=== PATIENT | male | born 1930 | race Caucasian/White ===

== ENCOUNTER 2019-07-04 20:38 | Inpatient (IN) | payer OTHER, BC ==
[~2019-07-04] VITALS: Ht 177.8 cm; Wt 77.0 kg
--- NOTE | ~2019-07-04 | HC ---
[facility] [place] [address] CONSULTATION Name: JOSELINE POOL Room #: 209-P [facility] IN ..#: [id number] Admission: 07/04/19 Attend Phys: Federico Juarez MD Discharge: Date of : 32 Report #: [id number] THIS REPORT FOR: //name// CC: Federico Juarez DATE OF SERVICE: 07/06/2019 HISTORY OF PRESENT ILLNESS: The patient is an 89-year-old white male who lives in assisted living facility with a history of Parkinson's disease and had a fall, hitting his head on the urinal. He sustained a laceration with head trauma. Denied any specific loss of consciousness. Upon admission, he was noted to have severe hyponatremia measured at 120. He had complaints of pain in the left aspect of the forehead with a laceration that was repaired in the Emergency Department. He was diagnosed with urinary tract infection. He does have Parkinson's disease. His oxybutynin and Seroquel were held. He was given normal saline. He is noted to have a functional decline from his premorbid status and we are seeing him in rehabilitation medicine consultation. PAST MEDICAL HISTORY: Includes Parkinson's disease for which he has been on Requip history of hypertension, GERD, gout, diabetes mellitus type 2, congestive heart failure, hyperlipidemia, hyponatremia, he has a suprapubic catheter, sleep disorder, pacemaker, chronic kidney disease stage 3, and cholecystectomy. PAST SURGICAL HISTORY: As noted above. MEDICATIONS: Please see the full medication listing. ALLERGIES: PENICILLIN AND CODEINE. FAMILY HISTORY: Significant for arthritis and Parkinson's disease. SOCIAL HISTORY: Lives in [facility]. He had some assistance with bathing. There is a history of 3 recent falls. The patient utilized a walker premorbidly to get down to the dining room in his assisted living apartment. He does have an involved daughter. REVIEW OF SYSTEMS: No current complaints of chest pain, shortness of breath, or abdominal discomfort. PHYSICAL EXAMINATION: GENERAL: A pleasant 89-year-old white male, in no obvious distress. VITAL SIGNS: Temperature 98.5, pulse 55, respirations 18, blood pressure 129/67. NEUROLOGIC: He is alert. Some evidence of masked facies. EOMs otherwise appeared full. There is a slight resting tremor. He has some mild cogwheeling, elbows and wrists. Strength is probably a grade 3+ to 4-/5. DTRs are trace to [facility] [address] [place] [address] CONSULTATION Name: JOSELINE POOL Room #: 209-P [facility] IN [facility].#: [id number] Admission: 07/04/19 Attend Phys: Federico Juarez MD Discharge: Date of : 32 Report #: [id number] 1. He does have a laceration near the left eyebrow with some ecchymosis. Sit to stand is min assist. Gait is min assist 30 feet with a front-wheeled walker. EXTREMITIES: Lower extremities, no focal calf swelling, functional range of motion with strength grade 4- to 3+/5. ASSESSMENT: This is an 89-year-old white male with the following problem list: 1. Parkinson's disease with some cogwheeling or bradykinesia. 2. Gait instability. 3. Recent falls. 4. Significant hyponatremia down to 120. 5. Fall with head trauma and laceration, left eyebrow. 6. Diabetes mellitus type 2. 7. Possible urinary tract infection. He is on antibiotics. PLAN: The patient is a candidate for an acute [address] [place] [address] inpatient rehabilitation stay. Discussion with the patient's daughter. He does have the medical necessity issues. We could have Internal Medicine closely involved regarding his electrolyte abnormalities and multiple medical comorbidities as noted above. He does have the tolerance for an acute inpatient rehabilitation stay and has the goal of returning back to his assisted living facility. We can plan on transfer to the acute [address] [place] [address] inpatient rehab pearce when medically cleared. Thank you for asking us to assist in this patient's care. By: [id number] Mook Ruth MD /JUAN
[2019-07-04 20:39] VITALS: BP 99/66
[2019-07-04] MEDS ORDERED: CARVEDILOL12.5 MG PO (21:14)
[2019-07-04] MEDS ORDERED: MIRALAX119 GM PO (21:15)
[2019-07-04] MEDS ORDERED: SLOW FE142 MG PO (21:15)
[2019-07-04] MEDS ORDERED: NIZORAL120 ML TOP (21:16)
[2019-07-04] MEDS ORDERED: TYLENOL325 MG PO (21:17)
[2019-07-04] MEDS ORDERED: IMODIUM A-D2 M1 PO (21:21)
[2019-07-04] MEDS ORDERED: MYLANTA GAS MIN42 MG PO (21:22)
[2019-07-04 21:24] LABS: HEMATOCRIT 36.7 % (42.0-52.0); HEMOGLOBIN 11.9 gm/dL (14.0-18.0); MCH 28.7 pg (26.0-34.0); MCHC 32.5 g/dL (28.0-37.0); MCV 88.3 fL (80.0-100.0); RBC 4.15 mil/uL (4.50-6.00); RDW 16.2 % (10.5-14.5); WBC 14.3 thou/uL (4.0-11.0)
[2019-07-04] MEDS ORDERED: MAGNESIUM250 M1 PO (21:24)
[2019-07-04 21:31] LABS: CALCIUM 9.6 mg/dL (8.5-10.1); CREATININE 1.4 mg/dL (0.7-1.3); POTASSIUM 4.8 mmol/L (3.5-5.1)
[2019-07-04] MEDS ORDERED: COMTAN200 MG PO (21:49)
[2019-07-04] MEDS ORDERED: OMEPRAZOLE 20 M20 M1 PO (21:52)
[2019-07-04] MEDS ORDERED: CENTRUM SILVER1 EACH PO (22:12)
[2019-07-04] MEDS ORDERED: VITAMIN B-121000 MC2 PO (22:13)
[2019-07-04] MEDS ORDERED: VITAMIN D310000 UNIT PO (22:13)
[2019-07-04] MEDS ORDERED: COLACE100 MG PO (22:13)
[2019-07-04] MEDS ORDERED: METFORMIN HCL500 M3 PO (22:15)
[2019-07-04] MEDS ORDERED: INDAPAMIDE1.25 MG PO (22:16)
[2019-07-04] MEDS ORDERED: CHILDREN'S ZYRT10 M1 PO (22:16)
[2019-07-04] MEDS ORDERED: RASAGILINE MESYL1 MG PO (22:18)
[2019-07-04] MEDS ORDERED: LIPITOR 20 MG T20 M1 PO (22:19)
[2019-07-04] MEDS ORDERED: ALLOPURINOL 10100 M3 PO (22:19)
[2019-07-04] MEDS ORDERED: FAMOTIDINE20 MG PO (22:19)
[2019-07-04] MEDS ORDERED: CRANBERRY 12,61 EACH PO (22:20)
[2019-07-04] MEDS ORDERED: PROBIOTIC1 EAC7 PO (22:20)
[2019-07-04] MEDS ORDERED: MELATONIN10 M3 PO (22:21)
[2019-07-04] MEDS ORDERED: REQUIP 1 MG TABL1 M1 PO (22:21)
[2019-07-04] MEDS ORDERED: POTASSIUM20 PO (22:22)
[2019-07-04] MEDS ORDERED: MAGIC MOUTHWASH SW&SWALLOW (22:22)
[2019-07-04] MEDS ORDERED: LASIX 40 MG TAB40 MG PO (22:23)
[2019-07-04] MEDS ORDERED: FLONASE 0.05%50 MCG NARES (22:24)
[2019-07-04] MEDS ORDERED: OXYBUTYNIN 5 MG5 M2 PO (22:26)
[2019-07-04] MEDS ORDERED: SPIRIVA18 MCG INH (22:26)
[2019-07-04] MEDS ORDERED: SEROQUEL 25 MG25 MG PO (22:27)
[2019-07-04] MEDS ORDERED: CARBIDOPA-LEVO1 EAC5 PO (22:31)
[2019-07-04] MEDS ORDERED: CARBIDOPA-LEVO1 EA10 PO (22:33)
[2019-07-04] MEDS ORDERED: VOLTAREN GEL 1100 G1 TOP (22:34)
[2019-07-04] MEDS ORDERED: NEURONTIN300 MG PO (22:36)
[2019-07-04] MEDS ORDERED: CEPACOL SORE T1 EAC7 PO (22:37)
[2019-07-04] MEDS ORDERED: MUCINEX D ER 61 EACH PO (22:37)
[2019-07-04] MEDS ORDERED: BIOFREEZE118 ML TOP (22:38)
[2019-07-04 22:58] VITALS: BP 140/83
--- NOTE | 2019-07-04 22:59 | NUR ---
HANDOFF SENT TO Sarah
[2019-07-04 23:46] VITALS: BP 122/68
--- NOTE | 2019-07-05 | NUR ---
A VERY DELIGHTFUL LITTLE 89 Y/O PT OF DR DO ADMITTED TO ICU FROM ER WITH CLOSED HEAD INJURY FROM A FALL AT [facility] AND HYPONATURMIA. AWAKE AND ALERT. LEFT EYE BROW AREA VERY BRUISED. LACERATION PRESENT WITH SUTURES. NS AT 125 CC/HR WILL CONT TO MONITOR.
[2019-07-05 00:13] VITALS: BP 140/70
--- NOTE | 2019-07-05 01:00 | NUR ---
PT IS STARTING TO HAVE CRAMPS AND TREMORS FROM PARKINSON. NEEDS HIS MEDICATION DR BRANDO HADDAD. DAUGHTER AT BEDSIDE. WILL CONT TO MONITOR
[2019-07-05] MEDS ORDERED: CARBIDOPA-LEVO1 EAC9 PO ×3 (01:53→12:12)
[2019-07-05 04:59] LABS: CREATININE 1.2 mg/dL (0.7-1.3); POTASSIUM 3.9 mmol/L (3.5-5.1)
[2019-07-05 05:49] VITALS: BP 101/58
--- NOTE | 2019-07-05 06:00 | NUR ---
NEURO INTACT. FOLLOWS ALLL COMMANDS AND [place]. REMAINS ON NS AT 125 CC/HR
--- NOTE | 2019-07-05 06:00 | NUR ---
PT IS SLEEPING AT PRESENT HAD PAST EVENING PARKINSONS MEDS AT 0230 1500 CC CLEAR ELMER URINE FROM SUPRAPUBIC CATH. REMAINS 100 % PACED NO FURTHER CRAMPING NOR TREMIORS./ PT IS A DNR. ON CAP AT NIGHT. WILL CONT TO MONITOR CLOSELY.
[2019-07-05 08:10] VITALS: BP 112/59
[2019-07-05 12:05] VITALS: BP 115/57
[2019-07-05] MEDS ORDERED: CRANBERRY PLUS1 EAC1 PO (12:18)
[2019-07-05] MEDS ORDERED: CENTRUM SILVER1 EACH PO (12:39)
[2019-07-05] MEDS ORDERED: BACTRIM DS TAB1 EAC1 PO (12:40)
[2019-07-05 14:07] LABS: URINE BILIRUBIN NEGATIVE (Negative); URINE BLOOD TRACE (Negative); URINE CLARITY CLEAR; URINE COLOR YELLOW; URINE GLUCOSE-RANDOM* NEGATIVE (Negative); URINE KETONES NEGATIVE (Negative); URINE LEUKOCYTES-REFLEX 3+ (Negative); URINE NITRITE-REFLEX POSITIVE (Negative); URINE PROTEIN (DIPSTICK) NEGATIVE (Negative); URINE SPECIFIC GRAVITY 1.015 (1.005-1.035); URINE UROBILINOGEN 0.2 E.U./dl (0.2-1.0)
[2019-07-05 14:15] LABS: URINE WBC-REFLEX >25 Many /HPF (0-5)
[2019-07-05 14:18] LABS: BACTERIA-REFLEX 1-9 Few /HPF (None Seen)
[2019-07-05 14:19] LABS: CASTS None Seen /LPF (None Seen); CRYSTALS None Seen /LPF (None Seen)
[2019-07-05 14:20] LABS: SQUAMOUS None Seen /LPF (0-3); URINE RBC 0-2 Rare /HPF (0-2)
[2019-07-05 15:55] VITALS: BP 112/54
[2019-07-05 20:18] VITALS: BP 136/56
[2019-07-06 04:13] VITALS: BP 152/89
--- NOTE | 2019-07-06 04:36 | NUR ---
ASSUMED CARE OF PT. AT 2100. PT. SLEPT WELL TRHOUGH MOST OF NIGHT. ONE INCIDENT OF CONFUSION AND TRYING TO GET UP AND OUT OF BED WITHOUT CALLING. NO OTHER EVENTS DURING SHIFT. ASSESSMENTS CHARTED. CONTINUE TO FOLLOW POC. WILL CONTINUE TO MONITOR.
[2019-07-06 04:59] LABS: ABSOLUTE NEUTROPHILS 5.1 thou/uL (1.4-8.2); BASOPHILS 0.9 % (0.0-2.0); EOSINOPHILS 3.9 % (0.0-3.0); HEMATOCRIT 36.3 % (42.0-52.0); HEMOGLOBIN 11.9 gm/dL (14.0-18.0); LYMPHOCYTES 21.7 % (24.0-44.0); MCH 28.8 pg (26.0-34.0); MCHC 32.7 g/dL (28.0-37.0); MCV 87.9 fL (80.0-100.0); PLATELET COUNT 276 thou/uL (150-400); POLYS 61.5 % (36.0-66.0); RBC 4.14 mil/uL (4.50-6.00); RDW 16.1 % (10.5-14.5); WBC 8.3 thou/uL (4.0-11.0)
[2019-07-06 05:16] LABS: ALBUMIN 3.6 g/dL (3.4-5.0); CREATININE 1.1 mg/dL (0.7-1.3); POTASSIUM 4.1 mmol/L (3.5-5.1); TOTAL BILIRUBIN 0.4 mg/dL (<0.1-1.0); TOTAL PROTEIN 7.8 g/dL (6.4-8.2)
[2019-07-06 07:25] VITALS: BP 134/80
--- NOTE | 2019-07-06 10:40 | NUR ---
Met with patient he resides at [facility]. He uses a walker for ambulation and on good days he is able to dress himself and using walker ambulate in hallway. Patient fell in bathroom at [facility] across from [place] room. patient does not recall coming to hospital. Therapy evaled and reports post acute care. Sp with kenneth Torres. She is agreeable to post acute care and interested in [facility] snf. They have never needed to utilize in the past. Therapy questions if candidate for 5N. He has hx of Parkinsons. Message to Dr long. Left medicare skilled list in room for patient.
[2019-07-06 11:15] VITALS: BP 121/67
--- NOTE | 2019-07-06 14:19 | NUR ---
patient accepted to 5N acute rehab once stable updated phys.
[2019-07-06 15:50] VITALS: BP 115/59
--- NOTE | 2019-07-06 16:02 | NUR ---
FAXED REFERRAL TO [facility] SPOKE WITH TRINITY IN ADM SHE RECEIVED REFERRAL AND DP JUST FOUND OUT THAT [facility] CAN ACCEPT SO TRINITY SAID SHE WILL HOLD ONTO REFERRAL IN CASE PT WOULD NEED A SKILLED STAY AFTER ACUTE REHAB.
[2019-07-06 20:12] VITALS: BP 125/74
[2019-07-07 04:58] LABS: ABSOLUTE NEUTROPHILS 6.2 thou/uL (1.4-8.2); BASOPHILS 0.6 % (0.0-2.0); EOSINOPHILS 5.5 % (0.0-3.0); HEMATOCRIT 34.7 % (42.0-52.0); HEMOGLOBIN 11.4 gm/dL (14.0-18.0); LYMPHOCYTES 18.4 % (24.0-44.0); MCHC 32.9 g/dL (28.0-37.0); MONOCYTES 11.4 % (1.0-8.0); PLATELET COUNT 272 thou/uL (150-400); POLYS 64.1 % (36.0-66.0); RBC 3.94 mil/uL (4.50-6.00); RDW 15.9 % (10.5-14.5); WBC 9.6 thou/uL (4.0-11.0)
[2019-07-07 05:04] VITALS: BP 148/77
[2019-07-07 05:07] LABS: CALCIUM 9.1 mg/dL (8.5-10.1); CREATININE 1.1 mg/dL (0.7-1.3); POTASSIUM 3.7 mmol/L (3.5-5.1)
--- NOTE | 2019-07-07 06:46 | NUR ---
PATIENTS CARES WERE ASSUMED AT SHIFT CHANGE. PATIENT WAS ASSESSED AND MEDS WERE PASSED. WAS TOLD ON REPORT THAT THIS MAN WAS UP WITH ONE ASSIST. GETTING HIM TO THE BATHROOM WAS A CHALLANGE. NOTES STATED HE IS MAX ASSIST AND WILL REINFORCE THAT IN REPORT. HE DOES TAKE PILLS WITH WATER AND NO TROUBLE TO SWOLLOWING.HOURLY ROUNDS WERE DONE. THE BED IS IN A LOW AND LOCKED POSITION. THE BED ALARM IS ON
[2019-07-07 08:37] VITALS: BP 142/71
--- NOTE | 2019-07-07 10:20 | NUR ---
patient to dc to 5N today they have bed avail and accepting. Notified dtr Melissa who is in agreement with plan. Notfied [facility] admission.
[2019-07-07 11:42] VITALS: BP 132/63
--- NOTE | 2019-07-07 12:09 | NUR ---
AAOX4. TREMORS D/T PARKINSONS NOTED. ASSISTED WITH BREAKFAST TRAY. ASSISTED TO BSC FOR BM. DISCHARGING TO INPT REHAB. DR. ELIAS CALLED FOR CHANGE IN ANTIBIOTIC PER PHARMACY D/T CULTURE I.D.
[2019-07-07 15:58] VITALS: BP 128/71
--- NOTE | 2019-07-08 15:38 | H ---
[facility] [place] [address] HISTORY AND PHYSICAL Name: JOSELINE POOL Room #: 209-P [facility] IN ..#: [id number] Admission: 07/04/19 Attend Phys: Philip Juarez MD Discharge: 07/07/19 Date of : 32 Report #: [id number] THIS REPORT FOR: //name// CC: PHILIP Juarez DATE OF SERVICE: 07/05/2019 CHIEF COMPLAINT: Hyponatremia. HISTORY OF PRESENT ILLNESS: The patient is an 89-year-old white male, a patient of Dr. Philip Juarez, a resident of [facility], who fell on the evening of this admission, struck his head on the urinal and sustained a laceration there that was repaired in the Emergency Department. He has a history of hyponatremia chronically; but usually not so drastic, it is 120 that was measured in the Emergency Room at [facility]. He is admitted to telemetry. Slow sodium correction was instituted with IV normal saline at 125 mL per hour. He is feeling better this morning. His forehead does hurt. PAST MEDICAL HISTORY: Hypertension, gastroesophageal reflux disease, gout, type 2 diabetes, congestive heart failure, hyperlipidemia, iron deficiency anemia, Parkinson's disease, seborrheic dermatitis, hyponatremia, frequent UTIs, suprapubic catheter after instrumentation for bladder stones, sleep disorder, pacemaker, chronic kidney disease stage 3, and cholecystectomy. MEDICATIONS: Indapamide 1.25 mg p.o. daily, Requip 3 mg p.o. t.i.d., magnesium hydroxide, milk of magnesia 30 mL p.o. q. 3 days p.r.n. constipation, Voltaren 1% gel q.i.d. to affected painful area, ketaconazole shampoo daily to red rashy skin, Neurontin 300 mg 1 p.o. q.i.d., famotidine 20 mg p.o. daily, B12 1000 mcg p.o. daily, melatonin 3 mg p.o. at bedtime, omeprazole 40 mg p.o. daily, Colace 100 mg p.o. daily, cholecalciferol vitamin D3 2000 International Units p.o. daily, Sinemet 25/100 two p.o. q.i.d., allopurinol 300 mg p.o. q.p.m. with dinner, gabapentin, atorvastatin or Lipitor 20 mg p.o. at bedtime, probiotic 1 cap p.o. daily, magnesium G 500 mg p.o. daily, multivitamin 1 p.o. daily, Comtan 200 mg p.o. t.i.d., Azilect 1 mg p.o. daily, metformin 500 mg p.o. b.i.d. with meals, Zyrtec 10 mg 1 p.o. daily p.r.n. allergies, quetiapine 25 mg p.o. at bedtime, cranberry extract p.o. t.i.d., Indocin 50 mg p.o. daily p.r.n. gouty arthritis, Spiriva Respimat 2 puffs inhalation daily, fluticasone Flonase allergy relief 1 spray nasally daily p.r.n. allergies, Omnicef 600 mg p.o. daily, colchicine 0.6 mg p.o. daily p.r.n. gout pain in the foot, Aristocort 0.1 mg application topically b.i.d. p.r.n. itch, Coreg 6.25 mg p.o. b.i.d. with meals. ALLERGIES: PENICILLIN, CODEINE. OCCUPATION: He is retired, ambulatory with a walker. [address] [address] HISTORY AND PHYSICAL Name: JOSELINE POOL Room #: 209-P [facility] IN [facility]#: [id number] Admission: 07/04/19 Attend Phys: Philip Juarez MD Discharge: 07/07/19 Date of : 32 Report #: [id number] ADDITIONAL SURGICAL HISTORY: Prostate surgery, transurethral resection of the prostate, suprapubic catheter instrumentation for bladder stones, urethral stricture instrumentation. FAMILY HISTORY: Mother had arthritis and Parkinson's disease. Father had arthritis and diabetes. SOCIAL HISTORY: He lives alone. He uses a walker, a [facility] resident, nonsmoker. He has a daughter who lives in [place]. REVIEW OF SYSTEMS: GENERAL: He has had debility, recent fall, laceration of the forehead repaired in the Emergency Room. Denies chest pain, shortness of breath, abdominal pain, has suprapubic catheter. Remainder of system review is negative. OBJECTIVE: VITAL SIGNS: Temperature is 36.9, pulse 81, respirations 20, blood pressure 101/58, pulse ox on room air is 98% on room air. GENERAL: He is alert, appears fatigued. HEENT: Pupils are equal, round, reactive to light and accommodation. Extraocular muscles are intact. He has a repaired laceration of the left aspect of his forehead. Pharynx unremarkable. NECK: Supple. COR: S1, S2. CHEST: Clear. ABDOMEN: Soft, nontender. A suprapubic catheter with clear urine draining to a drainage bag. EXTREMITIES: Nonedematous. NEUROLOGIC: Intact without focal deficit. LABORATORY DATA: White count 14.3, hemoglobin 11.9, hematocrit 36.7, platelets 268,000. Serum chemistry: Sodium 120, potassium 4.8, chloride 86, CO2 of 27, BUN 19, creatinine 1.4. IMAGING DATA: CT scan, L-spine done from the Emergency Department, no visualized fracture or listhesis, mild degenerative disk disease of lumbar spine with moderate degenerative disk disease at L3-L4 and L4-L5, lfinvtib-qq-wgpomk facet arthropathy of lower lumbar spine. Nonobstructing superior left renal calculus, [address] scan for the T-spine done from the Emergency Department, no fracture or listhesis. Diffuse mild degenerative disk disease of the thoracic spine. Mild peripheral ground glass opacities within the lung daniel, could be due to atelectasis or mild interstitial lung disease, coronary artery calcifications. CT scan of the C-spine done from the Emergency Department, no acute fracture or static subluxation of the cervical spine, mild degenerative disk disease of cervical spine with tumtkubb-gu-ccmrvo degenerative disk disease [address] [address] HISTORY AND PHYSICAL Name: CORINEJOSELINE Tristan Room #: 209-P [facility] IN M.R.#: [id number] Admission: 07/04/19 Attend Phys: Philip Juarez MD Discharge: 07/07/19 Date of : 32 Report #: [id number] at C5-C6 and C6-C7. Also, mild right and yarlcxpz-vj-gtpfyy left multilevel facet arthropathy. CT scan of the facial bones including mandible done from the Emergency Department, no facial fracture detected. CT scan of the head done from the Emergency Department, noncontrast, no acute intracranial process. Extensive supratentorial disease suggestive of small vessel ischemic white matter changes. ASSESSMENT: Hyponatremia, fall, laceration of the left aspect of the forehead repaired in the Emergency Department, urinary tract infection, Parkinson's disease, and type 2 diabetes. PLAN: Admit to telemetry. Monitor cardiac rhythm, slow sodium correction, check UA and culture if indicated. Restart most medications. Reviewing for possible association with hyponatremia, holding oxybutynin and Seroquel for now, holding Biofreeze cranberry not available. Mucinex, Cepacol Magic mouthwash, Accu-Cheks, and recheck morning laboratory. <ELECTRONICALLY SIGNED> By: Tae Sultana MD, VINCENZO, FACEP 07/08/19 [id number] Tae Sultana MD, VINCENZO, FACEP /nt
== END 2019-07-07 16:29 | DRG 914 ==
LOC: ER 20:38 → EROBS 22:15 → 2N 22:15 → ENTRNSPT 07-07 16:11 → 2N 07-07 16:29
PROVIDERS: Family Medicine; Physician Assistant; ADMIT Internal Medicine
PROC: 08QPXZZ Repair Left Upper Eyelid, External Approach (ICD-10-PCS; 2019-07-04)
PROC: 5A09357 Assistance with Respiratory Ventilation, Less than 24 Consecutive Hours, Continuous Positive Airway Pressure (ICD-10-PCS; principal; 2019-07-05)
PROC: 5A09357 Assistance with Respiratory Ventilation, Less than 24 Consecutive Hours, Continuous Positive Airway Pressure (ICD-10-PCS; 2019-07-06)
PROC: 5A09357 Assistance with Respiratory Ventilation, Less than 24 Consecutive Hours, Continuous Positive Airway Pressure (ICD-10-PCS; 2019-07-07)
DX: S09.90XA Unspecified injury of head, initial encounter (principal); N17.9 Acute kidney failure, unspecified; E87.1 Hypo-osmolality and hyponatremia; N39.0 Urinary tract infection, site not specified; I13.0 Hypertensive heart and chronic kidney disease with heart failure and stage 1 through stage 4 chronic kidney disease, or unspecified chronic kidney disease; S00.12XA Contusion of left eyelid and periocular area, initial encounter; G20 Parkinson's disease; E78.00 Pure hypercholesterolemia, unspecified; M10.9 Gout, unspecified; K21.9 Gastro-esophageal reflux disease without esophagitis; E11.42 Type 2 diabetes mellitus with diabetic polyneuropathy; I50.9 Heart failure, unspecified; K59.09 Other constipation; W18.39XA Other fall on same level, initial encounter; E78.5 Hyperlipidemia, unspecified; N18.3 Chronic kidney disease, stage 3 (moderate); E11.22 Type 2 diabetes mellitus with diabetic chronic kidney disease; Z66 Do not resuscitate; R29.6 Repeated falls; Z43.6 Encounter for attention to other artificial openings of urinary tract; Z90.49 Acquired absence of other specified parts of digestive tract; Z79.2 Long term (current) use of antibiotics; Z79.84 Long term (current) use of oral hypoglycemic drugs; Z79.899 Other long term (current) drug therapy; Z88.5 Allergy status to narcotic agent; Z88.0 Allergy status to penicillin; Z88.8 Allergy status to other drugs, medicaments and biological substances; Y93.89 Activity, other specified; Y92.89 Other specified places as the place of occurrence of the external cause; Y99.8 Other external cause status; Z82.61 Family history of arthritis; Z81.8 Family history of other mental and behavioral disorders; Z95.0 Presence of cardiac pacemaker; Z87.440 Personal history of urinary (tract) infections; Z83.3 Family history of diabetes mellitus
CPT/HCPCS: 10081

== ENCOUNTER 2019-07-07 10:57 | Inpatient (IN) | payer OTHER, BC ==
[~2019-07-07] VITALS: Ht 175.3 cm; Wt 72.6 kg
--- NOTE | ~2019-07-07 | HC ---
[facility] [place] [address] CONSULTATION Name: JOSELINE POOL Room #: 513-P ADM IN M.R.#: [id number] Admission: 07/07/19 Attend Phys: Mook Ruth MD Discharge: Date of : 32 Report #: [id number] THIS REPORT FOR: //name// CC: Federico Juarez Mook Ruth DATE OF SERVICE: 07/11/2019 NEUROBEHAVIORAL STATUS EXAM ATTENDING PHYSICIAN: Mook Ruth MD CLEAN OUT DRILLER: Inderjit Webb, PhD CLINICAL PRESENTATION: The patient is an 89-year-old male admitted to the Rehabilitation Unit at [facility] for comprehensive inpatient rehabilitation program to improve functional mobility, activities of daily living and self-care and mental status. The patient carries a diagnosis of Parkinson's disease. His assessment on admission to the rehab unit is Parkinson's disease with cogwheeling and bradykinesia, gait instability, recent falls, significant hyponatremia, fall with head trauma laceration over the left eyebrow, diabetes mellitus type 2 and possible urinary tract infection. The patient was diagnosed with UTI and treated with antibiotics. A complete description of his medical condition and history can be found in his medical record. Neuropsychological consultation was requested to provide assistance in the assessment of cognitive and emotional status and to provide recommendations and services. Prior to this most recent admission, the patient was living at [facility] in assisted living. He reports having 2 children. His about 20 years ago. The patient indicated having obtained a doctor of ministry degree. 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 He does not report a history of treatment for anxiety or depression. There is no description of excessive alcohol use. TECHNIQUES UTILIZED: Clinical interview, review of medical records, staff consultation and behavioral observation, mini mental status exam 2 standard version and clock drawing. EXAMINATION FINDINGS: The patient was alert and cooperative with the assessment. He was unable to describe the events surrounding his admission. The patient presented with initial amnestic episode, which may be a symptom of having sustained a concussion. He does not report auditory or visual hallucinations. There is no evidence of thought disorder. He does not present with aphasia. His thoughts are logical and goal oriented. The patient does present with a reduced speed of expression. Speech was slow and effortful. [address] [address] CONSULTATION Name: JOSELINE POOL Room #: 513-P [facility] IN M.R.#: [id number] Admission: 07/07/19 Attend Phys: Mook Ruth MD Discharge: Date of : 32 Report #: [id number] Bradykinesia is noted with thought processing and verbal expression. He does not report difficulty with sleep or energy level. He does recognize difficulty with memory and word finding. He describes his children are very supportive. The patient's mood appears depressed, although he denies subjective depression or anxiety. Performance on the MMSE 2 brief version is 10 of 16, which is a T score of 13. His function is extremely low. He was 3/3 for initial registration, 3/5 for orientation to time, 4/[address] and 0/3 for immediate recall of 3 items after a brief time delay and distraction. Performance on the MMSE 2 standard version is extremely low with a raw score of 19/30, T score of 16. He was 1/5 for serial sevens, 2/2 for naming, 1/1 for repetition, 3/3 for auditory comprehension. He could read and follow single command and write a sentence. The patient was unable to copy a simple geometric design. Deficits in clock drawing are also noted. The patient is presenting with moderate deficits in cognitive functioning. Memory, concentration and attention and executive functioning are impaired. Help was described as necessary for medication and financial operations consultant. DIAGNOSTIC IMPRESSION: Major neurocognitive disorder (dementia), unspecified, with Parkinson related features and also possibly a concussive event, without behavior disorder, extent to be determined, likely in the mild to moderate range. RECOMMENDATIONS: The patient will continue to require assistance in the management of medication, finances and nutrition. Increased time for problem solving will be necessary. Although the patient denies subjective depression, his mood appears despondent. However, depressive presentation may be a result of parkinsonian features. Consider a treatment program for depression that includes the use of antidepressant medication. Verbal praise and complements about participation in therapies along with increased time for verbal expression and planning will also be of benefit. Thank you very much for allowing me to provide the consultation on this patient. By: [id number] Inderjit Webb, PhD /nt
[~2019-07-07 10:57] MED LIST: ALLOPURINOL 10100 M3 PO; BACTRIM DS TAB1 EAC1 PO; BIOFREEZE118 ML TOP; CARBIDOPA-LEVO1 EA10 PO; CARBIDOPA-LEVO1 EAC5 PO; CARBIDOPA-LEVO1 EAC9 PO; CARVEDILOL12.5 MG PO; CENTRUM SILVER1 EACH PO; CEPACOL SORE T1 EAC7 PO; CHILDREN'S ZYRT10 M1 PO; COLACE100 MG PO; COMTAN200 MG PO; CRANBERRY 12,61 EACH PO; CRANBERRY PLUS1 EAC1 PO; FAMOTIDINE20 MG PO; FLONASE 0.05%50 MCG NARES; IMODIUM A-D2 M1 PO; INDAPAMIDE1.25 MG PO; LASIX 40 MG TAB40 MG PO; LIPITOR 20 MG T20 M1 PO; MAGIC MOUTHWASH SW&SWALLOW; MAGNESIUM250 M1 PO; MELATONIN10 M3 PO; METFORMIN HCL500 M3 PO; MIRALAX119 GM PO; MUCINEX D ER 61 EACH PO; MYLANTA GAS MIN42 MG PO; NEURONTIN300 MG PO; NIZORAL120 ML TOP; OMEPRAZOLE 20 M20 M1 PO; OXYBUTYNIN 5 MG5 M2 PO; POTASSIUM20 PO; PROBIOTIC1 EAC7 PO; RASAGILINE MESYL1 MG PO; REQUIP 1 MG TABL1 M1 PO; SEROQUEL 25 MG25 MG PO; SLOW FE142 MG PO; SPIRIVA18 MCG INH; TYLENOL325 MG PO; VITAMIN B-121000 MC2 PO; VITAMIN D310000 UNIT PO; VOLTAREN GEL 1100 G1 TOP
[2019-07-07 16:35] VITALS: BP 139/77
[2019-07-07 16:45] VITALS: BP 139/77
--- NOTE | 2019-07-07 19:00 | NUR ---
PT ADMITS TO 5N FOR PARKINSON AND GAIT INSTABILITY AT 1645. PT ALERT AND ORIENTED X4. SLOW IN RESPONSE BUT APPROPRIATE. HE LIVES AT [facility]. FALL ON THE GROUND. HAS 3 SUTURES ON UPPER EYE AND BRUISES AROUND IT. HAS ABRASION ON MID BACK WITH SCABBED OVER. OTHERWISE SKIN IS INTACT. VSS ON RA. REASSESSMENT PER CHART. LAST BM THIS AM REPORTS LIQUID BM. HAS SUPRAPUBIC CATH INTACT WITH ELMER URINE/ CHRONIC BLADDER STONES. PT HAS OLD PACEMAKER ON LEFT CHEST. BRADYCARDIA D/T ON PARKINSON MEDICATIONS. PT USES CPAP AT NIGHT PER CCU NURSE. HAS IV ON RIGHT FOREARM SL. STARTED ON 1ST DOSE IV CEFEPINE ABT PRIOR ADMIT TO 5N FOR UTI PER CCU NURSE AND CONTINUE TO BE ON 5N PER DR. ELIAS. PT DENIES PAIN, SOB. N/V. DISCUSSED ABOUT REHAB PROGRAM WITH PT AND HIS DAUGHTER. PT READ FALL CONTRACT AND SIGNED CONSENTS. WENT OVER MEDICATIONS WITH PT AND HIS DAUGHTER AND FAXED ADMISSION MEDS TO PHARMACY. OFFERED SUPPORTIVE CARE. PT ATE 50% DINNER. PT IS ON CONTACT PRECAUTION FOR MRSA ON NARES. FALL PRECAUTION IN PLACE. CALL LIGHT WITHIN REACH. GAVE REPORT TO NIGHT NURSE TO CONTINUE TO MONITOR AND NOTIFIED DOCTORS FOR CONSULTS.
[2019-07-07 19:50] VITALS: BP 147/96
--- NOTE | 2019-07-08 01:24 | NUR ---
PT ALERT AND ORIENTED X 4. TRANSFERS TO BSC WITH MAX ASSIST X 1-2. SUPRAPUBIC CATH INTACT WITH CLEAR DARK YELLOW URINE. CPAP ON DURING THE NIGHT. PT DENIES PAIN OR DISCOMFORT. BED ALARM ON FOR SAFETY. PT APPEARS TO BE SLEEPING ON HOURLY ROUNDS.
[2019-07-08 06:39] LABS: HEMATOCRIT 35.3 % (42.0-52.0); HEMOGLOBIN 11.7 gm/dL (14.0-18.0); MCH 29.2 pg (26.0-34.0); MCHC 33.3 g/dL (28.0-37.0); MCV 87.7 fL (80.0-100.0); RBC 4.02 mil/uL (4.50-6.00); RDW 16.2 % (10.5-14.5)
[2019-07-08 06:49] LABS: CALCIUM 9.3 mg/dL (8.5-10.1); POTASSIUM 3.8 mmol/L (3.5-5.1)
[2019-07-08 10:12] VITALS: BP 115/71
--- NOTE | 2019-07-08 12:30 | NUR ---
chart review, pt up sitting at lunch table asked for his glucerna drink. harvesting contractor ordered it for him. pt is a & o x 3 with forgetfulness, quiet and able make his needs know. noted holt cath dependent drain bag. no holt prior to admit. he lives at [facility]. has walker and wheel chair. was able to dress self prior to admit, noted bruising on left side of face and eye, noted stitches in left upper eye lid. " yes fell at my place"/dayne. noted hearing aids. he is i[place]qu[place]. cm visited with daughter juveanl via phone call. education on team meeting and dcp. " oh great. we still waiting to see if getting the ustep walker for his parkinson. we filled out the paper work but have heard back when going to get it"/juvenal. will cont following as needed for dc needs.
[2019-07-08 19:24] VITALS: BP 103/65
--- NOTE | 2019-07-08 20:00 | NUR ---
Assumed cares at 0700. pt very sleepy this am, oriented to person, place and situation. denies pain. vitals remain stable. suprapubic catheter remains intact and patent, urine is dark yellow and clear. Right AC IV remains intact and patent. left eye incision remains dry and and sutures are intact. *1 bm mucousy noted. q1h visual checks. call light within reach. room near nurse's desk
--- NOTE | 2019-07-09 00:52 | NUR ---
PT ALERT AND ORIENTED X 4. SUPRAPUBIC CATH INTACT WITH CLEAR DARK YELLOW URINE. CPAP ON DURING THE NIGHT. PT C/O PAIN IN HIS HANDS. REFUSED PAIN MEDS. LEFT EYE BRUISED WITH SUTURES INTACT. BED ALARM ON FOR SAFETY. PT APPEARS TO BE SLEEPING ON HOURLY ROUNDS.
--- NOTE | 2019-07-09 07:26 | HC ---
Formerly [facility] [place] [address] CONSULTATION Name: JOSELINE POOL Tristan Room #: 513-P [facility] IN .R.#: [id number] Admission: 07/07/19 Attend Phys: Mook Ruth MD Discharge: Date of : 32 Report #: [id number] THIS REPORT FOR: //name// CC: Federico Ruth CONSULTATION REPORT FOR MEDICAL MANAGEMENT HISTORY OF PRESENT ILLNESS: The patient is an 89-year-old male who was admitted to the hospital initially with a fall and a head strike on the urinal with laceration that required repair in the Emergency Room. The patient was found in the Emergency Room to have profound hyponatremia with sodium of 120. The patient was admitted to telemetry initially and he was treated with IV fluid with improvement of his sodium. The patient was found to have a urinary tract infection and he was started on antibiotics, but unfortunately he was found to have Pseudomonas in the blood. For this reason, the antibiotics were changed. The patient was feeling much better. For this reason, he was transferred to inpatient rehabilitation at [address] [place] [address]. PAST MEDICAL HISTORY: Significant for hypertension, gastroesophageal reflux disease, gout, type 2 diabetes mellitus, congestive heart failure, hyperlipidemia, iron deficiency anemia, Parkinson's disease, seborrheic dermatitis, hyponatremia, frequent UTIs, suprapubic catheter after instrumentation for bladder stone, sleep disorder, pacemaker, chronic kidney disease stage 3, and cholecystectomy. MEDICATIONS: Reviewed. ALLERGIES: PENICILLIN AND CODEINE. FAMILY HISTORY: Significant for mother with arthritis and Parkinson's disease. Father has had history of arthritis and diabetes. SOCIAL HISTORY: The patient is living at [facility]. Denies any history of smoking or alcohol use. REVIEW OF SYSTEMS: Negative besides what was mentioned above. PHYSICAL EXAMINATION: VITAL SIGNS: The patient's temperature is 97.4, pulse 76, respirations 18, blood pressure 147/96. HEAD AND NECK: Unremarkable besides the bruising on the left eyebrow. Range of motion of the eyes is normal. There is no drainage from the nose or ears. The patient has wet mucous membrane. NECK: Supple. LUNGS: Clear to auscultation with good air entry bilaterally. CARDIAC: S1, S2 with soft systolic murmur in the aortic area. Formerly [facility] [address] [place] [address] CONSULTATION Name: JOSELINE POOL Room #: 513-P ADM IN .R.#: [id number] Admission: 07/07/19 Attend Phys: Mook Ruth MD Discharge: Date of : 32 Report #: [id number] ABDOMEN: Benign. Bowel sounds were positive. EXTREMITIES: Without any edema. NEUROLOGIC: The patient is able to move arms and legs without any problem. LABORATORY DATA: The patient's labs on arrival to the hospital showed a white count of 10, hemoglobin 11.7, hematocrit 35.3, platelet count 295. The patient's sodium is 127, potassium 3.8, chloride 92, bicarbonate 27, BUN 12, creatinine 1 and glucose 97. Urine culture is showing Pseudomonas more than 100,000 colonies that is sensitive to cefepime. ASSESSMENT AND PLAN: 1. Hyponatremia. 2. Status post fall with head trauma. 3. Parkinson's disease. 4. Urinary tract infection with Pseudomonas. The patient will be transferred to the inpatient rehab where he will start physical therapy and occupational therapy. We will continue to monitor the patient's electrolytes. The patient's antibiotics were switched to cefepime because of the Pseudomonas in the urine. The patient to continue his current medications for Parkinson's disease and to continue monitoring of his blood sugar readings. The patient is not showing any signs of fluid overload. We will continue to monitor the patient. <ELECTRONICALLY SIGNED> By: Federico Juarez MD 07/09/1924 9 9 Federico Juarez MD /nt
[2019-07-09 09:00] VITALS: BP 117/69
--- NOTE | 2019-07-09 11:25 | NUR ---
SPIRITUAL CARE CONSULT [id number] WAS COMPLETED BY THIS RABIES INSPECTOR.
--- NOTE | 2019-07-09 19:11 | NUR ---
PATIEN CONT ON REHAB FOR IMPROVE MOBILITY. HE DOES REQUIRE MODERATE ASSIST WITH TRANSFERS. HE IS CONT. OF BOWEL. CATH DRAINING CLEAR YELLOW URINE. WILL CONT WITH PLAN OF CARE.
[2019-07-10 05:20] LABS: HEMATOCRIT 33.5 % (42.0-52.0); HEMOGLOBIN 11.1 gm/dL (14.0-18.0); MCH 29.3 pg (26.0-34.0); MCHC 33.3 g/dL (28.0-37.0); MCV 87.9 fL (80.0-100.0); PLATELET COUNT 270 thou/uL (150-400); RBC 3.81 mil/uL (4.50-6.00); RDW 16.2 % (10.5-14.5); WBC 9.5 thou/uL (4.0-11.0)
[2019-07-10 05:48] LABS: CALCIUM 9.5 mg/dL (8.5-10.1); CREATININE 1.1 mg/dL (0.7-1.3); POTASSIUM 4.1 mmol/L (3.5-5.1)
[2019-07-10 06:51] LABS: ABSOLUTE NEUTROPHILS 6.1 thou/uL (1.4-8.2)
[2019-07-10 06:52] LABS: ANISOCYTOSIS 1+; BURR CELLS 1+; LARGE PLATELETS FEW; PLATELET ESTIMATE NORMAL; POIKILOCYTOSIS 1+; SCHISTOCYTES 1+
[2019-07-10 10:08] VITALS: BP 92/56
--- NOTE | 2019-07-10 18:16 | NUR ---
ASSUMED CARE AT 0700. PATIENT IS ALERT AND ORIENTED X4, FORGETFUL. PATIENT OSBORNE'S, YARN HANDLER ARE EQUAL. LUNGS ARE CLEAR. ABD IS SOFT WITH BSX4. PATIENT HAS SUPRAPUBIC CATHETER DRAINING ELMER COLORED URINE. PATIENT DIET CHANGED TO REGULAR DIET. PATIENT IS [place] AND HAS TREMORS R/T HIS PARKINSON DISEASE. PATIENT HAS S.L. IN HIS RIGHT F.A. PATIENT CONTINUES ON IV ABT. FALL AND SAFETY PROTOCOLS IN PLACE. DENIES ANY PAIN. CONTINUES TO PROGRESS SLOWLY TOWARDS D/C GOALS. WILL CONTINUE TO MONITER.
[2019-07-10 19:30] VITALS: BP 111/69
--- NOTE | 2019-07-11 01:46 | NUR ---
TO BED LAST EVENING WITH SMALL STEPS TO PIVOT FROM WC. SUPRAPUBIC CATHETER HAS SMALL AMOUNT LEAKAGE AT SITE, AREA COVERED WITH SLIT DRESSING. TOLERATING CPAP SINCE 2229 LAST EVENING. WHEN NOT ON CPAP, HE TAKES MEDS WITH NECTAR THICK LIQUID AND COUGHS/SPITS SMALL AMOUNT THIN LIQUID INTO ANOTHER CUP
[2019-07-11 06:49] LABS: CALCIUM 9.5 mg/dL (8.5-10.1); CREATININE 1.2 mg/dL (0.7-1.3); POTASSIUM 4.1 mmol/L (3.5-5.1)
[2019-07-11 07:30] VITALS: BP 120/68
--- NOTE | 2019-07-11 10:08 | NUR ---
ASSUMED CARE AT 0700. PATIENT IS ALERT AND ORIENTED X4, BUT BURNS [place]IUTE. PATIENT ALSO HAS PARKINSONS TREMORS. LUNGS ARE CLEAR AND DEMINISHED. ABD IS SOFT WITH BSX4. PATIENT HAS SUPRAPUBIC CATHETER THAT IS DRAINING ELMER COLORED URINE. UP IN W/C AND OUT TO THE DINING ROOM FOR MEALS. FALL AND SAFETY PROTOCOLS IN PLACE. DENIES ANY PAIN AT THIS TIME. CONTINUES TO PROGRESS SLOWLY TOWARDS D/C GOALS. WILL CONTINUE TO MONITER.
[2019-07-11 20:15] VITALS: BP 125/67
--- NOTE | 2019-07-12 02:42 | NUR ---
ON SIDE IN BED AFTER LONG TIME UP IN CHAIR LAST EVENING. 2 PERSON ASSIST UP TO WC TO TOILET FOR FLATUS ONLY, SUPRAPUBIC CATHETER PATENT. RFA SALINE LOCK FOR BID ANTIBIOTICS. PATIENT DRINKING NECTAR THICK LIQUIDS, APPRECIATES MEDS IN APPLESAUCE, SIPS IN CUP. TOLERATING BIPAP NOW WITH O2 SATS 96-97%
[2019-07-12 08:00] VITALS: BP 117/71
--- NOTE | 2019-07-12 10:36 | NUR ---
ASSUMED CARE OF PT AT 0715. PT IS A&OX4. IS SLOW TO SPEAK. DENIES PAIN AT THIS TIME. IS UP WITH MAX ASSIST OF 1-2 STAND PIVOT TO CHAIR. FALL PRECAUTIONS & HOURLY ROUNDING CONTINUED THIS SHIFT. LABS & VITALS REVIEWED. PT TAKES MEDS WHOLE WITH APPLESAUCE. HAS SUPRAPUBIC CATH IN PLACE. HAS PACEMAKER UPPER LEFT CHEST. 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 PT IS STABLE. IS IN ROOM, IN BED, WATCHING TV AT THIS TIME. CALL LIGHT WITHIN REACH. WILL CONTINUE TO MONITOR.
[2019-07-12 19:47] VITALS: BP 124/71
--- NOTE | 2019-07-12 22:46 | NUR ---
PT ASSESSMENT DONE AND VSS. MEDS GIVEN AND WELL TOLERATED. FALL PRECAUTIONS IN PLACE. SLEEPING WELL. HOURLY ROUNDING. CALL LIGHT IN REACH. WILL CONTINUE TO MONITOR.
[2019-07-13 07:26] LABS: ABSOLUTE NEUTROPHILS 6.9 thou/uL (1.4-8.2); BASOPHILS 0.7 % (0.0-2.0); EOSINOPHILS 5.6 % (0.0-3.0); HEMATOCRIT 35.8 % (42.0-52.0); HEMOGLOBIN 11.6 gm/dL (14.0-18.0); MCH 28.9 pg (26.0-34.0); MCHC 32.4 g/dL (28.0-37.0); MONOCYTES 11.3 % (1.0-8.0); PLATELET COUNT 286 thou/uL (150-400); POLYS 65.4 % (36.0-66.0); RBC 4.02 mil/uL (4.50-6.00); RDW 16.1 % (10.5-14.5); WBC 10.5 thou/uL (4.0-11.0)
[2019-07-13 07:30] LABS: CALCIUM 9.3 mg/dL (8.5-10.1); CREATININE 1.3 mg/dL (0.7-1.3); POTASSIUM 4.3 mmol/L (3.5-5.1)
[2019-07-13 08:03] VITALS: BP 116/74
--- NOTE | 2019-07-13 15:05 | NUR ---
ASSUMED CARE AT 0700. VSS ON RA. PATIENT IS ALERT AND ORIENTED X4, BUT [place]. ABLE TO VOICE HIS NEED. PATIENT ALSO HAS MILD PARKINSONS TREMORS CONTINUE TO BE ON ANTIPARKINSONS MEDS. REASSESSMENT PER CHART. LUNGS ARE CLEAR AND DIMINISHED. PT HAD VIDEO SWALLOWING TODAY. OK TO RESUME WITH THIN LIQUID. TAKE MED WHOLE ONE AT TIME WITH EITHER THIN WATER OR YOGURT. ABD IS SOFT WITH BSX4. REPORTS THAT BM HAS BEEN LOOSED. CONTINUE TO BE ON IV ABT FOR UTI. IV ON HELD MIRALAX AND COLACE SCHEDULE TODAY. PATIENT HAS SUPRAPUBIC CATHETER THAT IS DRAINING ELMER COLORED URINE CHANGED TO LEG BAG DURING DAY. UP IN W/C AND OUT TO THE DINING ROOM FOR MEALS. HAS MILD BACK PAIN. VOLTARENE GEL GIVEN. RESTING IN RECLINER WATCHING TV. FALL AND SAFETY PROTOCOLS IN PLACE. DENIES ANY PAIN AT THIS TIME. CONTINUES TO PROGRESS SLOWLY TOWARDS D/C GOALS. WILL CONTINUE TO MONITOR.
[2019-07-13 20:03] VITALS: BP 120/68
--- NOTE | 2019-07-13 22:49 | NUR ---
PT ASSESSMENT DONE AND VSS. MEDS GIVEN AND WELL TOLERATED. FALL PRECAUTIONS IN PLACE. TURNED Q 2 HRS. HOURLY ROUNDING. CALL LIGHT IN REACH. ASSISTED HIM WHILE HE PREPARING FOR BED. WILL CONTINUE TO MONITOR.
[2019-07-14 08:00] VITALS: BP 109/66
--- NOTE | 2019-07-14 10:48 | NUR ---
ASSUMED CARE AT 0700. PATIENT IS ALERT AND ORIENTED X4. PATIENT OSBORNE'S, OFFSET PLATE MAKER ARE EQUAL. LUNGS ARE CLEAR AND DEMINISHED. ABD IS SOFT WITH BSX4. PATIENT IS BACK ON THIN LIQUIDS. UP TO THE DINING ROOM PER W/C FOR MEALS. FALL AND SAFETY PROTOCOLS IN PLACE. DENIES ANY PAIN. S.L. IS PATIENT IN HIS RIGHT AC. PATIENT HAS SUPRAPUBIC CATHETER DRAINING DARK ELMER URINE. PATIENT CONTINUES TO PROGRESS SLOWLY TOWARDS D/C GOALS. WILL CONTINUE TO MONITER.
--- NOTE | 2019-07-14 13:26 | NUR ---
team meeting, recommendation: u step walker. [facility] has own u step that was donated to him yesterday. [facility] soft thin liquid. kgw liaison here to visit with pt. bahman 07/23/2019 radha greenberg (pt, ot, st ).
[2019-07-14 20:40] VITALS: BP 104/68
--- NOTE | 2019-07-15 04:33 | NUR ---
UP TO TOILET WITH MODERATE ASSIST FOR SMALL LIQUID STOOL. SUPRAPUBIC CATHETER PATENT FOR YELLOW URINE. APPRECIATES APPLESAUCE TO EASE SWALLOWING OF PILLS AND GLAD THAT HE NO LONGER NEEDS THICKENED LIQUIDS. COUGHING AND SPITTING CLEAR SPUTUM IN CUP. TOLERATED CPAP FROM 2229 UNTIL NOW WHEN HE HAD A SNEEZING SPELL
--- NOTE | 2019-07-15 08:18 | NUR ---
ASSUMED CARE AT 0700. PATIENT IS ALERT AND ORIENTED X4. PATIENT OSBORNE'S, UTILIZATION SPECIALIST ARE EQUAL. LUNGS ARE CLEAR AND DEMINISHED. PATIENT STILL COUGHING UP CLEAR SPUTUM. ABD IS SOFT WITH BSX4. PATIETN HAS LEG BAG TO HIS SUPRA-PUBIC CATHETER. UP WITH GAIT BELT AND WALKER TO W/C AND THEN TO THE BATHROOM. FALL AND SAFETY PROTOCOLS IN PLACE. DENIES PAIN AT THIS TIME. DR. PIERRE HERE TO SEE PATIENT. CONTINUES TO PROGRESS TOWARDS D/C GOALS. WILL CONTINUE TO MONITER.
[2019-07-15 09:00] VITALS: BP 111/66
[2019-07-15 20:12] VITALS: BP 121/62
--- NOTE | 2019-07-16 02:05 | NUR ---
PILLS GIVEN WITH APPLESAUCE LAST EVENING WHILE PATIENT STILL UP IN CHAIR. SUPRAPUBIC CATHETER. UP TO TOILET WITH ASSIST TWICE FOR BM, ONE SMALL, ONE LARGE. OCCASSIONAL COUGH TO CLEAR THROAT
[2019-07-16 07:06] LABS: CALCIUM 9.8 mg/dL (8.5-10.1); CREATININE 1.1 mg/dL (0.7-1.3); POTASSIUM 4.4 mmol/L (3.5-5.1)
[2019-07-16 08:05] VITALS: BP 117/78
--- NOTE | 2019-07-16 11:09 | NUR ---
ASSUMED CARE AT 0700. PATIENT IS ALERT AND ORIENTEDX4. PATIENT OSBORNE'S, MEDICAL CLINIC MANAGER ARE EQUAL. LUNGS ARE CLEAR AND DEMINISHED. PATIENT CONTINUES TO CLEAR SPUTUM THAT IS BEING COUGHED UP. PATIENT CONTINUES ON NASAL SPRAY AND CLARITIN. UP IN W/C AND OUT TO DINING ROOM FOR MEALS. ABD IS SOFT WITH BSX4. PATIENT HAS SUPRA-PUBIC CATHETER TO DD, DRAINING ELMER COLORED URINE. PATIENT HAS S.L. IN HIS RIGHT AC. FALL AND SAFETY PROTOCOLS INPLACE. C/O PAIN IN HIS RIGHT SHOULDER AND HIP . PRN GEL APPLIED TO BOTH AREAS. CONTINUES TO PROGRESS SLOWLY TOWARDS D/C GOALS.
--- NOTE | 2019-07-16 19:27 | NUR ---
1800 ORDER RECIEVED TO REEPLACE PATIENTS SUPRA-PUBIC CATETER WITH A 26 FR/5CC BALLOON. ABD SITE WAS PREPPED, OLD CATHETER BALLOON WAS DEFLATED AND REMOVED AND WAS REPLACED WITH 26FR/5CC BALLOON. PATIENT HAD IMMEDIATE 150 CC RETURN OF ELMER COLORED URINE. PATIENT NEW CATHETER SECURED IN PLACE BY A CATH SECURE. PATIENT TOLERATED THE PROCEDURE WELL. WILL CONTINUE TO MONITER.
[2019-07-16 20:12] VITALS: BP 123/76
[2019-07-17 09:00] VITALS: BP 107/71
--- NOTE | 2019-07-17 11:33 | NUR ---
Nutrition: Seen for follow up. Met w/ pt and daughter at bedside. Pt is eating great. At start of week per 07/13 note, pt eating 50-100% of meals. Has started eating more and more meals at 100% as of late. New meal average up to 71% per 07/12-07/15. So far today, he ate 100% of breakfast and 100% Glucerna supplement. Pt in agreement he is eating well. "I ate every crumb." Overall, down ~11# from 170-172# back on 07/05 to current wt of 159# on 07/16. Lowest wt at 157#, so up 2# in the last week. Receiving Glucerna BID with high success of drinking all. Spoke w/ RN too who voiced excellent intake, just a slow eater. Reviewed upcoming meals to ensure pt likes future meals. No changes needed and no other nutrition needs. Change to low nutrition risk.
--- NOTE | 2019-07-17 11:34 | NUR ---
ASSUMED CARE AT 0700. REPORTS SLEPT GOOD LAST NIGHT. NIGHT RN SAID PT HAD 3X BM YESTERDAY AND IT WAS LOOSE LAST NIGHT. HELD COLACE SCHEDULE THIS AM. PT IS CURRENTLY ON IV ABT FOR UTI. PATIENT HAS S.L. IN HIS RIGHT AC. PATIENT IS ALERT AND ORIENTEDX4.[place], ABLE TO MAKE HIS NEEDS KNOWN. REASSESSMENT PER CHART. DYE BOX OPERATOR ARE EQUAL. LUNGS ARE CLEAR AND DIMINISHED. C/O CONGESTED LAST NIGHT, BUT FEELS BETTER TODAY.PATIENT CONTINUES TO CLEAR SPUTUM THAT IS BEING COUGHED UP. CONTINUES ON NASAL SPRAY AND CLARITIN. UP IN W/C AND OUT TO DINING ROOM FOR MEALS. ABD IS SOFT WITH BSX4. PATIENT HAS SUPRA-PUBIC CATHETER TO DD, DRAINING ELMER COLORED URINE. OFFERED SUPPORTIVE CARE. MEDS GIVEN WITH YOGURT. PT UP TO DINNING ROOM FOR BREAKFAST. ATE 100%. PT IS IN GOOD CHIEFS SPIRIT. DRESSING IN RED FOR CHIEFS. FALL AND SAFETY PROTOCOLS INPLACE. C/O PAIN IN HIS RIGHT SHOULDER AND HIP LAST NIGHT PRN GEL APPLIED TO BOTH AREAS. DENIES PAIN NOW. CONTINUES TO PROGRESS SLOWLY TOWARDS D/C GOALS. DAUGHTER AT BEDSIDE. WILL CONTINUE TO MONITOR.
--- NOTE | 2019-07-17 12:36 | PLAN ---
[facility] [place] [address] REHAB UNIT PLAN OF CARE Name: JOSELINE POOL Room #: 513-P ADM IN M.R.#: [id number] Admission: 07/07/19 Attend Phys: Mook Ruth MD Discharge: Date of : 32 Report #: [id number] THIS REPORT FOR: //name// CC: Federico Ruth DATE OF SERVICE: 07/10/2019 PROGRESS NOTE AND OVERALL PLAN OF CARE SUBJECTIVE: The patient is seen back today in followup. He is in no distress. Last recorded temperature 97.6, pulse 70, respirations 18, blood pressure 117/69. The patient is alert. He is pleasant. Left eye periorbital ecchymosis is gradually decreasing. Chest sounds clear. Abdomen: Bowel sounds positive, nontender. Noted to have a liquid consistency stool yesterday. He has been working in therapies. Transfers are min assist, gait contact guard 150 feet. He moves slowly and needs cues. He has been mod assist for lower body dressing. ASSESSMENT: 1. Parkinson's disease with some cogwheeling and bradykinesia. 2. Gait instability. 3. Recent falls. 4. Significant hyponatremia, which was down to 120. Last sodium was up at 129. 5. Fall with head trauma laceration, left eyebrow. 6. Diabetes mellitus type 2. 7. Urinary tract infection with pseudomonas. PLAN: The overall plan of care is based on the preadmission screen, post-admission physician evaluation and information garnered from therapy assessments. 1. Estimated length of stay is probably at least 10 days to 2 weeks. 2. Medical prognosis is reasonably good. 3. Anticipated interventions includes the interdisciplinary acute inpatient rehabilitation program. 4. Anticipated functional outcomes would be for the patient to become modified independent with transfers, mobility and ADLs, so that he can return back to his prior living situation. 5. Discharge destination would be back to his apartment where he lives in the [facility]. 6. Expected therapy by discipline includes PT and OT 1-1/2 hours per day each five days a week throughout the duration of the acute inpatient rehabilitation stay. <ELECTRONICALLY SIGNED> By: Mook Ruth MD 07/17/19 1236 [id number] Mook Ruth MD /[facility]
--- NOTE | 2019-07-17 12:36 | H ---
[facility] [place] [address] HISTORY AND PHYSICAL Name: CORINEJOSELINE Tristan Room #: 513-P ADM IN M.R.#: [id number] Admission: 07/07/19 Attend Phys: Mook Ruth MD Discharge: Date of : 32 Report #: [id number] THIS REPORT FOR: //name// CC: Federico Ruth DATE OF SERVICE: 07/07/2019 HISTORY AND PHYSICAL/POST ADMISSION PHYSICIAN EVALUATION HISTORY OF PRESENT ILLNESS: The patient is an 89-year-old white male who lives in an assisted living facility with history of Parkinson's disease and had a fall, hitting his head on a urinal. He sustained a laceration with head trauma. Denies specific loss of consciousness. She was admitted to [facility] on 07/04/2019. Upon admission, he was noted to have severe hyponatremia with a level of 120. He had complaints of pain, left aspect of his forehead with laceration that was repaired in the Emergency Department. He was diagnosed with the urinary tract infection. He does have Parkinson's disease and also has a prior suprapubic catheter. His oxybutynin and Seroquel were held. He was given normal saline for his severe hyponatremia. He was noted to have significant functional deficits with a decrease from his premorbid functional level and has been admitted now for acute in-hospital inpatient rehabilitation. PAST MEDICAL HISTORY: Includes Parkinson's disease for which he has been on Requip. He has a history of hypertension, GERD, gout, diabetes mellitus type 2, congestive heart failure, hyperlipidemia, hyponatremia. He has the suprapubic catheter, sleep disorder, pacemaker, chronic kidney disease stage 3, cholecystectomy. PAST SURGICAL HISTORY: As noted above. MEDICATIONS: Please see the full medication listing. ALLERGIES: PENICILLIN AND CODEINE. FAMILY HISTORY: Significant for arthritis and Parkinson's disease. SOCIAL HISTORY: Lives at [facility]. He did have some assistance with bathing. There is a history of 3 recent falls. He utilized a walker premorbidly to get down of the dining room in his assisted living apartment. He does have an involved daughter. REVIEW OF SYSTEMS: No current complaints of chest pain, shortness of breath or abdominal discomfort. PHYSICAL EXAMINATION: [address] [address] HISTORY AND PHYSICAL Name: JOSELINE POOL Room #: 513-P [facility] IN .R.#: [id number] Admission: 07/07/19 Attend Phys: Mook Ruth MD Discharge: Date of : 32 Report #: [id number] GENERAL: This is an 89-year-old white male in no obvious distress. VITAL SIGNS: Last recorded temperature 97.4, pulse 79, respirations 18, blood pressure 147/96. NEUROLOGIC: The patient is alert. He does have some evidence of masked facies. EOMs otherwise appeared full, slight resting tremor. CHEST: Sounded clear to auscultation. CARDIOVASCULAR: Regular rate and rhythm. ABDOMEN: Bowel sounds positive, nontender. GENITOURINARY AND RECTAL: Deferred. EXTREMITIES: He has some mild cogwheeling elbows and wrists. Strength is grade 3+ to 4-/5. DTRs are trace to 1. He does have the laceration near the left eyebrow with some ecchymosis. Sit to stand, has been min assist. ASSESSMENT: This is an 89-year-old white male with the following problem list: 1. Parkinson's disease with some cogwheeling and bradykinesia. 2. Gait instability. 3. Recent falls. 4. Significant hyponatremia down to 120. 5. Fall with head trauma laceration, left eyebrow. 6. Diabetes mellitus type 2. 7. Possible urinary tract infection. He was diagnosed with a UTI per his cyber intelligence analyst and was treated with antibiotics. PLAN: From a postadmission physician evaluation perspective, there are no relevant changes since the preadmission screening. Please see the above review of prior and current medical and functional conditions and comorbidities. Please see the patient's previous and current functional status. As far as risk of complications, the patient has multiple medical comorbidities as noted above. Initial plan of care involves the interdisciplinary acute inpatient rehabilitation program with the goal of maximizing his functional independence, so he can hopefully return back to his prior living situation. Measurable functional goals would be for the patient to become independent with basic transfers and mobility issues at a walker level as well as achieving his prior ADL status so that he can return back to the home setting. Prognosis is reasonably good. Estimated length of stay is probably 10 days to 2 weeks. Potential barriers would include his multiple medical comorbidities and decreased functional status. The patient meets diagnostic criteria for an acute in-hospital inpatient rehabilitation stay. He meets the medical necessity criteria and we will have the provider contracting consultant physicians continue to follow, Dr. Juarez. He does have the [address] [address] HISTORY AND PHYSICAL Name: JOSELINE POOL Room #: 513-P ADM IN M.R.#: [id number] Admission: 07/07/19 Attend Phys: Mook Ruth MD Discharge: Date of : 32 Report #: [id number] tolerance for therapies and has an appropriate discharge goal back to the home setting. <ELECTRONICALLY SIGNED> By: Mook Ruth MD 07/17/19 1236 [id number] [id number] Mook Ruth MD /PMT
[2019-07-17 20:05] VITALS: BP 100/62
--- NOTE | 2019-07-18 04:37 | NUR ---
TOLERATING WATER, TAKING PILLS WITH APPLESAUCE PER HIS REQUEST. UP TO TOILET FOR ANOTHER BM WHICH HE C/O HAVING GAS AT THE SAME TIME, PLUS IT TOOK HIM A WHILE. ABLE TO WASH HIS HANDS WELL AND THEN BRUSH HIS TEETH INDEPENDENTLY. CPAP LAST EVENING AND IS STILL BEING TOLERATED WITH O2 SAT GREATER THAN 95%
[2019-07-18 11:37] VITALS: BP 116/63
--- NOTE | 2019-07-18 19:15 | NUR ---
ASSUMED CARE AT 0700. REPORTS SLEPT GOOD LAST NIGHT. PT CONTINUE TO BE ON IV ABT FOR UTI UNTIL 07/19/2019. PT HAD 4X LOOSE BM TODAY. HELD COLACE SCHEDULE THIS AM. PATIENT HAS S.L. IN HIS RIGHT AC. PATIENT IS ALERT AND ORIENTEDX4.[place], ABLE TO MAKE HIS NEEDS KNOWN. CONTINUE TO BE ON ISOLATION FOR MRSA ON NARES. REASSESSMENT PER CHART. LUNG SOUNDS CLEAR/DIMINISHED C/O CONGESTED PRN PSEUDOPHED GIVEN THIS EVENING. PATIENT CONTINUES TO CLEAR SPUTUM THAT IS BEING COUGHED UP. CONTINUES ON NASAL SPRAY AND CLARITIN. UP WITH WALKER AND OUT TO DINING ROOM FOR MEALS. ABD IS SOFT WITH BSX4. PATIENT HAS SUPRA-PUBIC CATHETER TO DD, DRAINING YELLOW COLORED URINE. OFFERED SUPPORTIVE CARE. MEDS GIVEN WITH YOGURT. PAIN IN HIS RIGHT SHOULDER AND HIP PRN GEL APPLIED TO BOTH AREAS. DENIES PAIN NOW. CONTINUES TO PROGRESS SLOWLY TOWARDS D/C GOALS. GAVE REPORT TO NIGHT NURSE TO CONTINUE TO MONITOR.
[2019-07-18 19:38] VITALS: BP 122/89
--- NOTE | 2019-07-19 03:02 | NUR ---
PT CARE ASSUME DWITH PT WATCHING TV IN BED.PT IS ALERT AND ORIENTED X4.PT UP TO RESTROOM WITH ASSISTED TO HAVE BM.PT IS ON RA DURING THE DAY AND CPAP AT NIGHT.PT TAKE MEDICATION WITH APPLE SAUCE OR YOGURT.FALL PRECAUTION IN PLACE AND PT CALL FO HELP APPROPRIETELY.WILL CONTINUE TO MONITOR PER POC
[2019-07-19 07:20] VITALS: BP 137/84
--- NOTE | 2019-07-19 11:15 | NUR ---
ASSUMED CARE AT 0700. PATIENT IS ALERT AND ORIENTED X4. PATIENT OSBORNE. DESK OFFICER ARE EQUAL. LUNGS ARE CLEAR AND DEMINISHED. PATIENT STILL HAS RESPIRATORY TX, AND IS COUGHING UP WHITE TO CLEAR MUCUS. S.L. D/C'D AND ABT D/C'D. MAGIC MOUTHWASW D/C'D. 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 UP TO THE W/C AND TO THE DINING ROOM FOR MEALS. PATIENT TAKES HIS MEDS IN APPLESAUCE. PATIENT HAS SUPRAPUBIC CATHETER DRAINING ELMER COLORED URINE. UP IN CHAIR IN HIS ROOM. FALL AND SAFETY PROTOCOLS IN PLACE. DENIES PAIN AT THIS TIME. CONTINUES TO PROGRESS TOWARDS D/C GOALS. WILL CONTINUE TO MONITER.
[2019-07-19 20:37] VITALS: BP 107/62
--- NOTE | 2019-07-19 22:45 | NUR ---
PT ASSESSMENT DONE AND VSS. MEDS GIVEN AND WELL TOLERATED. SLEEPING MED HELD TILL AFTER THE SUPERBOWL. PT UP IN RECLINER DURING THE GAME. ASSISTED TO BR WITH GAIT BELT AND WALKER. CONTINUES TO COUGH UP CLEAR MUCUS. FALL PRECAUTIONS IN PLACE. SLEEPING WELL AFTER THE GAME. CIPAP ON AT HS. HOURLY ROUNDING. CALL LIGHT IN PLACE. WILL CONTINUE TO MONITOR.
[2019-07-20 06:07] LABS: HEMATOCRIT 33.6 % (42.0-52.0); HEMOGLOBIN 10.9 gm/dL (14.0-18.0); MCHC 32.5 g/dL (28.0-37.0); MCV 89.2 fL (80.0-100.0); PLATELET COUNT 219 thou/uL (150-400); RBC 3.77 mil/uL (4.50-6.00); RDW 15.9 % (10.5-14.5); WBC 9.3 thou/uL (4.0-11.0)
[2019-07-20 06:24] LABS: CALCIUM 9.2 mg/dL (8.5-10.1); CREATININE 1.2 mg/dL (0.7-1.3); POTASSIUM 4.2 mmol/L (3.5-5.1)
--- NOTE | 2019-07-20 06:37 | NUR ---
CALLED PCP [facility] FOR SCOPALAMINE PATCH FOR EXCESS SECRETIONS. PCP DECLINED DIDN'T WANT TO DRY THE PT OUT TO MUCH. NO ORDERS.
[2019-07-20 08:24] LABS: ABSOLUTE NEUTROPHILS 5.3 thou/uL (1.4-8.2); METAMYELOCYTES 1 %
[2019-07-20 08:25] LABS: ANISOCYTOSIS 1+
[2019-07-20 10:00] VITALS: BP 124/74
--- NOTE | 2019-07-20 11:42 | NUR ---
ASSUMED CARE AT 0700. PATIENT IS ALERT AND ORIENTED X4. PATIENT OSBORNE. PT DIDN'T SLEEP WELL LAST NIGHT D/T EXCITING ABOUT CHIEFS PLAYED LAST NIGHT. HAD SHOWER WITH OT. LOOKS LITTLE TIRED FOR LACK OF SLEEP LAST NIGHT. PARTICIPATES WITH THERAPY. REASSESSMENT PER CHART. PT STILL HAS CONGESTED AND EXCESS SALVIA, OFFERED PRN MUCINEX AND PSEUDOPHED WITH MORNING MEDS THIS AM. DR. ELIAS WAS HERE THIS AM AND SAID HE WILL ODER FOR SCOLAPAMIDE PATCH. LUNGS ARE CLEAR AND DEMINISHED. PATIENT STILL HAS RESPIRATORY TX, AND IS COUGHING UP WHITE TO CLEAR MUCUS. 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 UP TO THE W/C AND TO THE DINING ROOM FOR MEALS. PATIENT TAKES HIS MEDS IN APPLESAUCE. PATIENT HAS SUPRAPUBIC CATHETER DRAINING ELMER COLORED URINE CHANGE TO LEG BAG DURING DAY. UP IN CHAIR IN DINNING ROOM FOR MEALS AND CONTINUE TO WORK WITH ST. OFFERED SUPPORTIVE CARE. PT UP WITH WALKER, SLOW NEEDS EXTRA TIME. FALL AND SAFETY PROTOCOLS IN PLACE. CHECK FREQUENTLY FOR NEEDS AND SAFETY. CONTINUES TO PROGRESS TOWARDS D/C GOALS. WILL CONTINUE TO MONITOR.
[2019-07-20 19:30] VITALS: BP 122/69
--- NOTE | 2019-07-20 22:59 | NUR ---
PT ASSESSMENT DONE AND VSS. MEDS GIVEN AND WELL TOLERATED. STILL CLEARING THROAT OF SECRETIONS. SCHEDULED MUCINEX AND PRN COUGH DROP GIVEN. FALL PRECAUTIONS IN PLACE. CPAP ON AT HS. SLEEPING WELL. HOURLY ROUNDING. CALL LIGHT IN REACH. WILL CONTINUE TO MONITOR.
[2019-07-21 07:45] VITALS: BP 132/69
--- NOTE | 2019-07-21 11:20 | NUR ---
ASSUMED CARE AT 0700. PATIENT IS ALERT AND ORIENTED X4. REPORTS SLEPT BETTER LAST NIGHT. MUCINEX AND PSEUDOPHEDRINE GIVEN SCHEDULE NOW AND HE SAID IT HELPS ALOT. PT UP WITH OT AND TOOK SHOWER THIS AM. PARTICIPATES WITH THERAPY. REASSESSMENT PER CHART. 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 UP TO THE W/C AND TO THE DINING ROOM FOR MEALS. PATIENT TAKES HIS MEDS IN APPLESAUCE. PATIENT HAS SUPRAPUBIC CATHETER DRAINING [place] COLORED URINE CHANGE TO LEG BAG DURING DAY. UP IN CHAIR IN DINNING ROOM FOR MEALS. ENCOURAGED PT TO NOT TALKING WHILE CHEWING FOOD. CONTINUE TO WORK WITH ST. OFFERED SUPPORTIVE CARE. PT UP WITH WALKER, SLOW NEEDS EXTRA TIME. FALL AND SAFETY PROTOCOLS IN PLACE. CHECK FREQUENTLY FOR NEEDS AND SAFETY. CONTINUES TO PROGRESS TOWARDS D/C GOALS. WILL CONTINUE TO MONITOR.
--- NOTE | 2019-07-21 12:35 | NUR ---
team meeting, recommendation: cont to work with u walker, diet is mech soft thin. needs stand by with showers. dc 6th with [facility] ( pt, ot, st). will take his u walker home with him to [facility]. send updates to [facility] and see if can do altered diet.
--- NOTE | 2019-07-21 13:49 | NUR ---
DISCHARGE ANTICIPATED 07/23/2019, PER UNIT CM. [facility] CALL PLACED TO [facility] ADMISSIONS TO NOTIFY. FOLLOWING.
--- NOTE | 2019-07-21 16:17 | NUR ---
DISCHARGE PLANNING. PATIENT ANTICIPATED TO DISCHARGE BACK TO [facility] WITH [facility]. PATIENT REFERRAL FAXED TO [facility]. PATIENT INFORMATION FAXED TO [facility] NEGRO FOLLOWING.
[2019-07-21 19:27] VITALS: BP 124/74
--- NOTE | 2019-07-22 02:00 | NUR ---
UP TO TOILET TWICE WITH WALKER, ONCE FOR BM AND ONCE FOR BM ATTEMPT, BOTH TIMES WITH STANDY ASSIST, GAIT BELT, AND U-WALKER. CURRENTLY IS TOLERATING CPAP WELL WITH O2 SAT = 100%.
[2019-07-22 08:15] VITALS: BP 140/86
--- NOTE | 2019-07-22 15:48 | NUR ---
cm notified that kgw is asking if pt can come back to skilled prior to going back to his al apartment. bebo passed on information to MD and will cont following as need for dc needs. kgw will need to discuss their recommendation with pt daughter since not what team recommendation here. anticipated dc tomorrow with [facility] pend now if going to go skilled tomorrow instead of [place].
--- NOTE | 2019-07-22 16:54 | NUR ---
ASSUMED CARE AT 0700, PT A&O X 4, NO ACUTE DISTRESS NOTED. VSS O2 ON RA. PT DENIES PAIN OR DISCOMFORT. NO IV ACCESS, UP WITH ASSIST X 1 USING GAIT BELT AND WALKER. TOLERATES MEDS IN APPLESAUCE. PT HAS SUPAPUBIC CATHETER, CONTINENT OF BOWEL. IMPROVEMENT IN COUGH AND SPUTUM NOTED, PT TO D/C TOMORROW. SITTING IN CHAIR, CALL LIGHT WITHIN REACH, WILL CONTINUE TO MONITOR PER POC.
[2019-07-22 19:57] VITALS: BP 108/66
--- NOTE | 2019-07-23 02:08 | NUR ---
UP TO BATHROOM WITH GAIT BELT, WALKER, AND STANDBY ASSIST, LONG SIT ON TOILET YIELDED SMALL CLEAR LIQUID STOOL WITH BROWN FLECKS. TOLERATED CPAP FOR 3 HOURS AND THEN HAD ME TAKE IT OFF BECAUSE HE WAS COUGHING MORE THAN ENOUGH TO HANDLE AGAINST THE PRESSURE OF THE CPAP.
[2019-07-23 07:35] VITALS: BP 142/92
[2019-07-23 08:00] VITALS: BP 142/92
--- NOTE | 2019-07-23 08:30 | NUR ---
voice message from felix with kgw stated spoke with family and daughter is ok with him going back to skilled rehab before assisted with hh. cm passed on information to 5n team.
[2019-07-23] MEDS ORDERED: NYSTATIN15 G1 TOP (11:41)
[2019-07-23 12:00] VITALS: BP 142/92
--- NOTE | 2019-07-23 14:45 | NUR ---
PT A&O X 4, NO ACUTE DISTRESS NOTED. VSS, O2 100% ON RA. PT DENIED ANY PAIN OR DISCOMFORT, MOD ASSIST X 1 WITH GAIT BELT AND WALKER. DISCHARGE EDUCATION AND INSTRUCTIONS COMPLETED, PT DENIES ANY QUESTIONS OR CONCERNS, SCRIPTS GIVEN TO PT. CALLED PROVIDED NUMBER FOR [employer] AND REPORTED TO NURSE. PT LEFT HOSPITAL WITH [facility] [facility] TRANSPORT AT 1330.
== END 2019-07-23 13:30 | disposition home health service (06) | DRG 57 ==
PROVIDERS: Internal Medicine; Nurse Practitioner Adult Health; Nurse Practitioner Family; ADMIT Physical Medicine & Rehabilitation
DX: G20 Parkinson's disease (principal); I13.0 Hypertensive heart and chronic kidney disease with heart failure and stage 1 through stage 4 chronic kidney disease, or unspecified chronic kidney disease; E87.1 Hypo-osmolality and hyponatremia; N39.0 Urinary tract infection, site not specified; K21.9 Gastro-esophageal reflux disease without esophagitis; I11.0 Hypertensive heart disease with heart failure; I50.9 Heart failure, unspecified; M10.9 Gout, unspecified; E78.5 Hyperlipidemia, unspecified; N18.3 Chronic kidney disease, stage 3 (moderate); E11.22 Type 2 diabetes mellitus with diabetic chronic kidney disease; B96.5 Pseudomonas (aeruginosa) (mallei) (pseudomallei) as the cause of diseases classified elsewhere; R26.9 Unspecified abnormalities of gait and mobility; Z95.0 Presence of cardiac pacemaker; Z90.49 Acquired absence of other specified parts of digestive tract; Z88.0 Allergy status to penicillin; Z88.6 Allergy status to analgesic agent
CPT/HCPCS: 10112

== ENCOUNTER 2019-07-27 07:10 | Emergency (ER) | payer OTHER, BC ==
[~2019-07-27] VITALS: Ht 172.7 cm; Wt 72.6 kg
[~2019-07-27 07:10] MED LIST changes: +NYSTATIN15 G1 TOP
[2019-07-27 08:35] VITALS: BP 166/80
== END 2019-07-27 08:46 | disposition home or self-care (01) ==
LOC: ER 07:10
DX: T83.028A Displacement of other urinary catheter, initial encounter (principal); I10 Essential (primary) hypertension; E11.9 Type 2 diabetes mellitus without complications; E78.00 Pure hypercholesterolemia, unspecified; K21.9 Gastro-esophageal reflux disease without esophagitis; G20 Parkinson's disease; M10.9 Gout, unspecified; Z90.49 Acquired absence of other specified parts of digestive tract; Z86.2 Personal history of diseases of the blood and blood-forming organs and certain disorders involving the immune mechanism; Z95.0 Presence of cardiac pacemaker; Z88.0 Allergy status to penicillin; Z88.6 Allergy status to analgesic agent; Z88.8 Allergy status to other drugs, medicaments and biological substances

== ENCOUNTER 2019-07-30 18:09 | Emergency (ER) | payer OTHER, BC ==
[~2019-07-30] VITALS: Ht 177.8 cm; Wt 84.8 kg
[2019-07-30 19:39] LABS: ABSOLUTE NEUTROPHILS 7.5 thou/uL (1.4-8.2); BASOPHILS 0.9 % (0.0-2.0); EOSINOPHILS 3.8 % (0.0-3.0); HEMATOCRIT 32.5 % (42.0-52.0); HEMOGLOBIN 10.7 gm/dL (14.0-18.0); LYMPHOCYTES 13.6 % (24.0-44.0); MCHC 32.8 g/dL (28.0-37.0); MCV 88.5 fL (80.0-100.0); MONOCYTES 8.9 % (1.0-8.0); PLATELET COUNT 210 thou/uL (150-400); POLYS 72.8 % (36.0-66.0); RBC 3.68 mil/uL (4.50-6.00); RDW 16.2 % (10.5-14.5); WBC 10.4 thou/uL (4.0-11.0)
[2019-07-30 19:52] LABS: ANION GAP 7 mmol/L (7-16); BUN 13 mg/dL (7-18); CALCIUM 8.3 mg/dL (8.5-10.1); CHLORIDE 96 mmol/L (98-107); CO2 30 mmol/L (21-32); GLUCOSE 103 mg/dL (74-106); POTASSIUM 3.3 mmol/L (3.5-5.1); SODIUM 133 mmol/L (136-145)
[2019-07-30 19:59] LABS: URINE BILIRUBIN NEGATIVE (Negative); URINE BLOOD 3+ (Negative); URINE CLARITY CLEAR; URINE COLOR YELLOW; URINE GLUCOSE-RANDOM* NEGATIVE (Negative); URINE KETONES NEGATIVE (Negative); URINE PROTEIN (DIPSTICK) 2+ (Negative); URINE UROBILINOGEN 0.2 E.U./dl (0.2-1.0)
[2019-07-30 20:00] LABS: URINE LEUKOCYTES-REFLEX 3+ (Negative); URINE NITRITE-REFLEX POSITIVE (Negative)
[2019-07-30 20:02] LABS: ALBUMIN 3.5 g/dL (3.4-5.0); DIRECT BILIRUBIN 0.2 mg/dL (<0.1-0.2); LIPASE 49 U/L (73-393); SGOT 81 U/L (15-37); SGPT 15 U/L (30-65); TOTAL BILIRUBIN 0.5 mg/dL (<0.1-1.0); TOTAL PROTEIN 7.3 g/dL (6.4-8.2); TROPONIN-I <0.06 ng/mL (<0.06)
[2019-07-30 20:11] LABS: BACTERIA-REFLEX >30 Many /HPF (None Seen); SQUAMOUS None Seen /LPF (0-3); URINE WBC-REFLEX >25 Many /HPF (0-5)
[2019-07-30 20:12] LABS: CASTS None Seen /LPF (None Seen); CRYSTALS None Seen /LPF (None Seen)
[2019-07-30] MEDS ORDERED: CIPROFLOXACIN500 M1 PO (20:44)
[2019-07-30 21:25] VITALS: BP 112/60
--- NOTE | 2019-07-31 08:08 | EKG ---
[facility] [place] [address] ELECTROCARDIOGRAM REPORT Name: JOSELINE POOL Room #: DEP [facility]#: [id number] Admission: 07/30/19 Attend Phys: Discharge: 07/30/19 Date of : 34 Report #: [id number] THIS REPORT FOR: cc: Federico Juarez MD, Ammar MD Lundgren,Candido Mack MD [facility] ~ THIS REPORT FOR: //name// [facility] ED Test Date: 2019-07-30 Test Time: 18:11:51 Pat Name: JOSELINE POOL Department: Room: Gender: Certified Physical Therapist Assistant: : [id number] Requested By: Jatinder Vasquez Order Number: [id number] MD: Candido Arreola Measurements Intervals [place] Rate: 77 P: 92 NM: 225 QRS: -58 QRSD: 145 T: 116 QT: 455 QTc: 516 Interpretive Statements AV sequential pacing Multiple ventricular premature complexes Prolonged NM interval Compared to ECG 04/12/2008 06:45:53 pacing is now present Electronically Signed On 07-31-2019 8:07:21 SUSTAINABILITY PURCHASING AGENT by Candido Arreola [email or web address] <ELECTRONICALLY SIGNED> By: Candido Arreola MD, [facility] 07/31/19 0807 181 10 Candido Arreola MD, [facility] /EPI
== END 2019-07-30 21:25 | disposition home or self-care (01) ==
LOC: ER 18:09
PROVIDERS: Emergency Medicine
DX: N39.0 Urinary tract infection, site not specified (principal); E87.5 Hyperkalemia; I10 Essential (primary) hypertension; E78.00 Pure hypercholesterolemia, unspecified; E11.9 Type 2 diabetes mellitus without complications; K21.9 Gastro-esophageal reflux disease without esophagitis; M10.9 Gout, unspecified; Z90.49 Acquired absence of other specified parts of digestive tract; Z95.0 Presence of cardiac pacemaker; Z88.5 Allergy status to narcotic agent; Z88.0 Allergy status to penicillin